=== PATIENT | male | born 1995 | race Caucasian/White ===

== ENCOUNTER 2017-10-10 13:18 | Emergency (ER) | payer SELFPAY ==
[~2017-10-10] VITALS: Ht 182.9 cm; Wt 113.4 kg
[2017-10-10 13:33] VITALS: BP 120/69
--- NOTE | 2017-10-10 14:13 | RAD ---
INDICATION: Twisting injury while getting into car this afternoon. TECHNIQUE: 3 views of the left knee are submitted for review. No comparison is available. FINDINGS: There is no fracture or dislocation. There is no joint effusion or soft tissue swelling. IMPRESSION: Negative for fracture. Electronically signed by: Jorge Gaming MD (10/10/2017 2:09 PM) [facility]
[2017-10-10] MEDS ORDERED: traMADol 50 MG TABLET PO ONE (14:30)
[2017-10-10] MEDS ORDERED: TRAM-48 PO (14:35)
--- NOTE | 2017-10-10 14:36 | PHYS DOC ---
Adult General Chief Complaint Chief Complaint: KNEE INJURY [facility] HPI Patient is a pleasant 21-year-old male who presents for evaluation of left knee pain. He states he was getting in his car this morning and twisted his knee. He states that he felt some pops. He denies previous injury to the knee. He states he has some pain when bearing weight. The knee does not feel unstable. He denies any other complaints. He is alert and oriented 4, calm, and appears to be in no distress. Review of Systems Review of Systems Constitutional: Denies fever or chills [] Eyes: Denies change in visual acuity, redness, or eye pain [] HENT: Denies nasal congestion or sore throat [] Respiratory: Denies cough or shortness of breath [] Cardiovascular: No additional information not addressed in HPI [] GI: Denies abdominal pain, nausea, vomiting, bloody stools or diarrhea [] : Denies dysuria or hematuria [] Musculoskeletal: Denies back pain [] left knee pain Integument: Denies rash or skin lesions [] Neurologic: Denies headache, focal weakness or sensory changes [] Endocrine: Denies polyuria or polydipsia [] All other systems were reviewed and found to be within normal limits, except as documented in this note. Allergies Allergies Allergies Coded Allergies Type Severity Reaction Last Updated Verified No Known Drug Allergies 10/10/17 No Physical Exam Physical Exam Constitutional: Well developed, well nourished, no acute distress, non-toxic appearance. [] HENT: Normocephalic, atraumatic, bilateral external ears normal, oropharynx moist, no oral exudates, nose normal. [] Eyes: PERRLA, EOMI, conjunctiva normal, no discharge. [] Neck: Normal range of motion, no tenderness, supple, no stridor. [] Cardiovascular:Heart rate regular rhythm, no murmur [] Lungs & Thorax: Bilateral breath sounds clear to auscultation [] Abdomen: Bowel sounds normal, soft, no tenderness, no masses, no pulsatile masses. [] Skin: Warm, dry, no erythema, no rash. [] Back: No tenderness, no CVA tenderness. [] Extremities: No tenderness, no cyanosis, no clubbing, ROM intact, no edema. [] No joint effusion seen, anterior drawer on left is negative, negative varus/ valgus testing, joint is stable, no deformity or abnormality seen, CMS intact distally Neurologic: Alert and oriented X 3, normal motor function, normal sensory function, no focal deficits noted. [] Psychologic: Affect normal, judgement normal, mood normal. [] EKG EKG [] Radiology/Procedures Radiology/Procedures [address] [address] IMAGING REPORT Signed PATIENT: JS ZAMORA ACCOUNT: [id number] : 1995 LOCATION: ER AGE: 21 SEX: M EXAM STATUS: REG ER ORD. PHYSICIAN: CHRIS KILPATRICK DO REASON: INJURY PROCEDURE: KNEE LEFT 3V INDICATION: Twisting injury while getting into car this afternoon. TECHNIQUE: 3 views of the left knee are submitted for review. No comparison is available. FINDINGS: There is no fracture or dislocation. There is no joint effusion or soft tissue swelling. IMPRESSION: Negative for fracture. Electronically signed by: Jorge Gaming MD (10/10/2017 2:09 PM) [facility] DICTATED AND SIGNED BY: JORGE GAMING MD DATE: 10/10/17 1409 CC: CHRIS KILPATRICK DO; PCP,NO ~ Course & Med Decision Making Course & Med Decision Making Pertinent Labs and Imaging studies reviewed. (See chart for details) @1430 - Patient informed of radiology results which are unremarkable. Knee immobilizer and crutches provided. The patient will go home with a work note for today and tomorrow off. Advised the patient to follow up with orthopedics and advised that he may require an MRI. He is stable for discharge at this time. Dragon Disclaimer Dragon Disclaimer This electronic medical record was generated, in whole or in part, using a voice recognition dictation system. Departure Departure: Impression: Primary Impression: Left knee injury Disposition: 01 HOME, SELF-CARE Condition: STABLE Referrals: JIAN CLEVELAND MD Patient Instructions: Knee Immobilizer, [id number], Knee Pain, Knee Sprain Additional Instructions: Follow-up with Dr. Cleveland from orthopedics in the next 3-5 days. Use the crutches and knee immobilizer provided. Return to the Emergency Department immediately for new or worsening symptoms. Take the prescribed medicine as directed, as needed. Also take ibuprofen for pain relief as needed. Scripts Tramadol Hcl (ULTRAM) 50 Mg Tablet 50 MG PO PRN Q6HRS PRN for PAIN, #15 TAB Prov: CHRIS KILPATRICK DO 10/10/17 CHRIS KILPATRICK DO Oct 10, 2017 14:35
== END 2017-10-10 14:47 | disposition home or self-care (01) ==
LOC: ER 13:18
DX: S89.92XA Unspecified injury of left lower leg, initial encounter (principal); X50.1XXA Overexertion from prolonged static or awkward postures, initial encounter; Y93.89 Activity, other specified; Y99.8 Other external cause status; Y92.89 Other specified places as the place of occurrence of the external cause
CPT/HCPCS: 29505; 73562; 99284